=== PATIENT | female | born 1980 | race Caucasian/White ===

== ENCOUNTER 2020-08-31 15:42 | Inpatient (IN) | payer SELFPAY, OTHER ==
[~2020-08-31] VITALS: Ht 165.1 cm; Wt 63.6 kg
[2020-08-31] MEDS ORDERED: LORazepam 2 mg/ml vial IV ONE (16:20)
[2020-08-31] MEDS ORDERED: normal saline 1000ML IV soln IVB ONE (16:45)
[2020-08-31 16:55] LABS: BASOPHILS # (AUTO) 0.1 X10'3 (0-0.2); BASOPHILS % (AUTO) 0.9 % (0-1); EOSINOPHILS # (AUTO) 0.1 X10'3 (0-0.9); EOSINOPHILS % (AUTO) 0.5 % (0-6); HEMATOCRIT 33.4 % (35.0-45.0); HEMOGLOBIN 11.4 g/dl (12.0-16.0); LYMPHOCYTES % (AUTO) 20.6 % (21-51); MEAN CORPUSCULAR HEMOGLOBIN 31.8 PG (27.0-31.0); MEAN CORPUSCULAR HGB CONC 34.1 g/dL (33.0-36.5); MEAN CORPUSCULAR VOLUME 93.1 FL (78-98); MEAN PLATELET VOLUME 6.9 FL (7.4-10.4); MONOCYTES # (AUTO) 0.9 X10'3 (0-0.9); MONOCYTES % (AUTO) 9.5 % (2-12); NEUTROPHILS # (AUTO) 6.8 X10'3 (1.8-7.7); NEUTROPHILS % (AUTO) 68.5 % (42-75); PLATELET COUNT 308 X10'3 (140-440); RED BLOOD COUNT 3.59 X10'6 (4.20-5.60); RED CELL DISTRIBUTION WIDTH 15.2 % (11.5-14.5); WHITE BLOOD COUNT 9.9 X10'3 (4.5-11.0)
[2020-08-31] MEDS ORDERED: MIDAZolam 5mg/ml 2ml vial IV ONE ×2 (17:00→18:00)
[2020-08-31 17:02] LABS: CLARITY,URINE CLOUDY (Clear); COLOR,URINE YELLOW (Yellow); GLUCOSE, URINE NEGATIVE (Neg); KETONES,URINE NEGATIVE (Neg); LEUKOCYTE ESTERASE ,URINE NEGATIVE (Neg); NITRITES, URINE NEGATIVE (Neg); OCCULT BLOOD,URINE LARGE (Neg); PROTEIN,URINE NEGATIVE (Neg)
[2020-08-31 17:03] LABS: UA COLLECTION TYPE STRAIGHT CATH
[2020-08-31 17:13] LABS: BACTERIA,URINE NONE SEEN /HPF (Neg); MUCUS STRANDS FEW /LPF (Neg); RBC,URINE 20-50 /HPF (0-2); SQUAMOUS EPITHELIAL CELL,UR MODERATE /LPF (FEW); TRANSITIONAL EPI CELLS,URINE MODERATE /HPF; WBC,URINE 0-4 /HPF (0-4)
[2020-08-31 17:14] LABS: AMORPHOUS PHOSPHATES 4+; HYALINE CASTS 0-3 /LPF (NEGATIVE)
[2020-08-31 17:18] LABS: URINE AMPHETAMINE SCREEN POSITIVE (Neg); URINE BARBITUATE SCREEN NEGATIVE (Neg); URINE BENZODIAZEPINES SCREEN NEGATIVE (Neg); URINE CANNABINOID SCREEN POSITIVE (Neg); URINE COCAINE SCREEN NEGATIVE (Neg); URINE METHADONE SCREEN NEGATIVE (Neg); URINE OPIATE SCREEN NEGATIVE (Neg); URINE PHENCYCLIDINE SCREEN NEGATIVE (Neg)
[2020-08-31 17:41] LABS: ALANINE AMINOTRANSFERASE 26 U/L (12-78); ALBUMIN 3.9 G/DL (3.4-5.0); ALBUMIN/GLOBULIN RATIO 1.1 (1.1-1.5); ALKALINE PHOSPHATASE 96 IU/L (46-116); ANION GAP 9 (8-16); ASPARTATE AMINO TRANSFERASE 50 U/L (10-37); BLOOD UREA NITROGEN 20 MG/DL (7-18); BUN/CREATININE RATIO 18.9 (6.6-38.0); CALCIUM 10.6 MG/DL (8.5-10.1); CHLORIDE 108 MMOL/L (99-107); CREATININE 1.06 MG/DL (0.40-0.90); GLUCOSE 84 MG/DL (70-104); POTASSIUM 4.2 MMOL/L (3.5-5.1); SODIUM 140 MMOL/L (135-145); TOTAL CARBON DIOXIDE 23.2 MMOL/L (24-32); TOTAL PROTEIN 7.6 G/DL (6.4-8.2); eGFR 58 ML/MIN
[2020-08-31 17:43] LABS: TROPONIN I < 0.04 NG/ML (0.0-0.05)
[2020-08-31 17:47] LABS: ETHANOL < 0.010 GM/DL (0.0-0.010)
[2020-08-31] MEDS ORDERED: ceFAZolin 1000mg inj ONE (18:42)
[2020-08-31] MEDS ORDERED: clindamycin phosphate 150mg/ml inj. ONE (18:42)
[2020-08-31] MEDS ORDERED: gentamicin 40 MG/1 ML inj ONE (18:42)
[2020-08-31] MEDS ORDERED: heparin 10,000 units/1 ML INJ ONE (18:42)
[2020-08-31] MEDS ORDERED: piperacillin/tazo 3.375gm/50ml 50 ML IV ONE (18:55)
[2020-08-31] MEDS ORDERED: haloperidol lactate 5mg/ml inj IM ONE (18:55)
[2020-08-31] MEDS ORDERED: acetaminophen 650mg rectal suppository RC ONE (18:55)
[2020-08-31] MEDS ORDERED: diphenhydrAMINE 50 mg/ml inj IV ONE (18:55)
[2020-08-31] MEDS ORDERED: VANCOmycin 1250MG/NS 250ml Bag 250 ML IV ONE (19:00)
[2020-08-31 19:20] LABS: URINE HCG NEGATIVE (NEG)
--- NOTE | 2020-08-31 19:30 | NUR ---
restraints removed after benydryl and haldol im , patient will be going to cat scan rr even un labored observable decrease in agitation md aware
--- NOTE | 2020-08-31 20:30 | NUR ---
patient in bed right side hob 30 degrees covers on eyes closed rr even un labored no observable s/s of acute stress at this time
[2020-08-31 20:51] LABS: ALBUMIN 3.4 G/DL (3.4-5.0); ANION GAP 11 (8-16); BLOOD UREA NITROGEN 20 MG/DL (7-18); BUN/CREATININE RATIO 20.8 (6.6-38.0); CALCIUM 9.7 MG/DL (8.5-10.1); CHLORIDE 110 MMOL/L (99-107); CREATINE KINASE 737 U/L (26-192); CREATININE 0.96 MG/DL (0.40-0.90); GLUCOSE 80 MG/DL (70-104); POTASSIUM 3.7 MMOL/L (3.5-5.1); SODIUM 142 MMOL/L (135-145); TOTAL CARBON DIOXIDE 21.4 MMOL/L (24-32); eGFR 65 ML/MIN
--- NOTE | 2020-08-31 21:59 | NUR ---
dr. sandhu assesssing patient at bedside rr even un labored patient hard to arouse hob 30 degrees rr even un labored no observable s/s of acute will continue to monitor
[2020-08-31] MEDS ORDERED: magnesium hydroxide 30ml (MOM) UD suspension PO PRN (22:10)
[2020-08-31] MEDS ORDERED: acetaminophen 325mg tablet PO PRN (22:10)
[2020-08-31] MEDS ORDERED: ondansetron/PF 4mg/2ml inj IV PRN (22:10)
[2020-08-31] MEDS ORDERED: mag hydrox/Alum hydrox/simeth 30ml oral suspension PO PRN (22:10)
[2020-08-31] MEDS: normal saline 1000ml 1,000 ML IV SCH (22:28)
--- NOTE | 2020-08-31 23:59 | NUR ---
PATIENT IN BED EYES CLOSED RR EVEN UN LABORED NO OBSERVABLE S/S OF DELRIUM WILL CONTINUE TO MONITOR
--- NOTE | 2020-09-01 01:00 | NUR ---
patient in bed eyes closed rr even un labored bno observable s/s of delirium will continue to monitor
--- NOTE | 2020-09-01 02:26 | NUR ---
PATIENT SUPINE IN BED HOB 30 DEGREES RR EVEN UN LABORED NO OBSERVABLE S/S OF ACUTE DELIRIUM AT THIS TIME WILL CONTINUE TO MONITOR
[2020-09-01] MEDS: normal saline 1000ml 1,000 ML IV SCH ×4 (03:58→23:33)
--- NOTE | 2020-09-01 03:58 | NUR ---
PATIENT IN BED LYING ON RIGHT SIDE COVERS ON EYES CLOSED RR EVEN UN LABORED NO OBSERVABLE S/S OF ACUTE DILIRIUM AT THIS TIME WILL CONTINUE TO MONITOR
[2020-09-01 05:29] LABS: ALANINE AMINOTRANSFERASE 23 U/L (12-78); ALBUMIN 3.1 G/DL (3.4-5.0); ALBUMIN/GLOBULIN RATIO 0.9 (1.1-1.5); ALKALINE PHOSPHATASE 75 IU/L (46-116); ANION GAP 8 (8-16); ASPARTATE AMINO TRANSFERASE 46 U/L (10-37); BILIRUBIN,TOTAL 1.5 MG/DL (0.1-1.0); BLOOD UREA NITROGEN 19 MG/DL (7-18); BUN/CREATININE RATIO 21.1 (6.6-38.0); CHLORIDE 114 MMOL/L (99-107); GLUCOSE 72 MG/DL (70-104); POTASSIUM 4.1 MMOL/L (3.5-5.1); SODIUM 144 MMOL/L (135-145); TOTAL CARBON DIOXIDE 22.1 MMOL/L (24-32); TOTAL PROTEIN 6.5 G/DL (6.4-8.2); eGFR 70 ML/MIN
[2020-09-01 05:31] LABS: CREATINE KINASE 503 U/L (26-192)
[2020-09-01 05:32] LABS: BASOPHILS # (AUTO) 0.1 X10'3 (0-0.2); BASOPHILS % (AUTO) 1.4 % (0-1); EOSINOPHILS # (AUTO) 0.2 X10'3 (0-0.9); EOSINOPHILS % (AUTO) 3.3 % (0-6); HEMATOCRIT 32.5 % (35.0-45.0); HEMOGLOBIN 10.9 g/dl (12.0-16.0); LYMPHOCYTES # (AUTO) 2.1 X10'3 (1.1-4.8); LYMPHOCYTES % (AUTO) 41.1 % (21-51); MEAN CORPUSCULAR HGB CONC 33.6 g/dL (33.0-36.5); MEAN CORPUSCULAR VOLUME 95.1 FL (78-98); MONOCYTES # (AUTO) 0.5 X10'3 (0-0.9); MONOCYTES % (AUTO) 9.6 % (2-12); NEUTROPHILS # (AUTO) 2.3 X10'3 (1.8-7.7); NEUTROPHILS % (AUTO) 44.6 % (42-75); PLATELET COUNT 231 X10'3 (140-440); RED BLOOD COUNT 3.42 X10'6 (4.20-5.60); RED CELL DISTRIBUTION WIDTH 15.3 % (11.5-14.5); WHITE BLOOD COUNT 5.1 X10'3 (4.5-11.0)
--- NOTE | 2020-09-01 05:42 | NUR ---
PATIENT LYING ON LEFT SIDE COVERS ON HOB 30 DEGREES, EYES CLOSED RR EVEN UN LABORED NO OBSERVABLE S/S OF ACUTE STRESS/DELIRIUM AT THIS TIME WILL CONTINUE TO MONITOR PATIENT AFTER DRAWING A.M. LABS STARTED A CONVERSATION AND IS CURRENTLY EASY TO AROUSE AND AOX4 ASSESSED AFTER CONVERSATION
[2020-09-01] MEDS ORDERED: NO HOME MEDS (06:09)
[2020-09-01] MEDS: heparin, porcine 5000 units/ml vial SQ SCH ×2 (08:00→20:00)
[2020-09-01 10:00] VITALS: BP 90/45
[2020-09-01] MEDS: CefTRIAXone/D5W-Rocephin 1gm 50 ML IV SCH (11:31)
[2020-09-01] MEDS: vancomycin/NS 1 GM ADD-VANTAGE 250 ML IV SCH ×2 (13:59→22:12)
[2020-09-01 18:37] VITALS: BP 94/60
[2020-09-01] MEDS: lactobacillus rhamnosus 10,000 MMU CELLS/CAPSULE PO SCH (19:45)
--- NOTE | 2020-09-01 21:22 | NUR ---
PATIENT STATES [employer] PAIN AND TINGLING IN BOTH FEET. Addendum: 09/01/20 at 2146 by Dianna RANDHAWA Amended: Links added.
[2020-09-01 22:33] VITALS: BP 82/48
--- NOTE | 2020-09-01 22:40 | NUR ---
PATIENT STATES CONTINUOUS TNGLING AND PAIN SENSATION IN FEET. Addendum: 09/01/20 at 2242 by Dianna RANDHAWA Amended: Links added.
--- NOTE | 2020-09-01 22:46 | NUR ---
reviewed and agree with SRN assessment.
[2020-09-02 06:00] VITALS: BP 92/43
--- NOTE | 2020-09-02 06:23 | NUR ---
Problems reprioritized. Patient report given, questions answered & plan of care reviewed with MELI HUITRON.
[2020-09-02 06:28] LABS: BASOPHILS # (AUTO) 0.1 X10'3 (0-0.2); BASOPHILS % (AUTO) 1.2 % (0-1); EOSINOPHILS # (AUTO) 0.2 X10'3 (0-0.9); EOSINOPHILS % (AUTO) 3.2 % (0-6); HEMATOCRIT 28.6 % (35.0-45.0); HEMOGLOBIN 9.7 g/dl (12.0-16.0); LYMPHOCYTES # (AUTO) 1.8 X10'3 (1.1-4.8); LYMPHOCYTES % (AUTO) 38.2 % (21-51); MEAN CORPUSCULAR HEMOGLOBIN 32.2 PG (27.0-31.0); MEAN CORPUSCULAR VOLUME 94.9 FL (78-98); MEAN PLATELET VOLUME 7.1 FL (7.4-10.4); MONOCYTES # (AUTO) 0.4 X10'3 (0-0.9); MONOCYTES % (AUTO) 8.3 % (2-12); NEUTROPHILS # (AUTO) 2.3 X10'3 (1.8-7.7); NEUTROPHILS % (AUTO) 49.1 % (42-75); PLATELET COUNT 205 X10'3 (140-440); RED BLOOD COUNT 3.02 X10'6 (4.20-5.60); WHITE BLOOD COUNT 4.7 X10'3 (4.5-11.0)
--- NOTE | 2020-09-02 06:29 | NUR ---
Patient in room ORTHO 4007. I have received report from Christen and had the opportunity to ask questions and assume patient care.
[2020-09-02 06:32] LABS: ALANINE AMINOTRANSFERASE 20 U/L (12-78); ALBUMIN 2.7 G/DL (3.4-5.0); ALBUMIN/GLOBULIN RATIO 0.9 (1.1-1.5); ALKALINE PHOSPHATASE 81 IU/L (46-116); ANION GAP 11 (8-16); ASPARTATE AMINO TRANSFERASE 34 U/L (10-37); BILIRUBIN,TOTAL 0.6 MG/DL (0.1-1.0); BLOOD UREA NITROGEN 17 MG/DL (7-18); BUN/CREATININE RATIO 19.8 (6.6-38.0); CALCIUM 8.5 MG/DL (8.5-10.1); CHLORIDE 110 MMOL/L (99-107); CREATININE 0.86 MG/DL (0.40-0.90); GLUCOSE 90 MG/DL (70-104); POTASSIUM 3.7 MMOL/L (3.5-5.1); SODIUM 141 MMOL/L (135-145); TOTAL CARBON DIOXIDE 19.9 MMOL/L (24-32); TOTAL PROTEIN 5.7 G/DL (6.4-8.2); eGFR 74 ML/MIN
[2020-09-02] MEDS: lactobacillus rhamnosus 10,000 MMU CELLS/CAPSULE PO SCH ×2 (07:31→19:29)
[2020-09-02] MEDS: heparin, porcine 5000 units/ml vial SQ SCH ×2 (07:32→19:31)
[2020-09-02] MEDS: CefTRIAXone/D5W-Rocephin 1gm 50 ML IV SCH (07:32)
[2020-09-02] MEDS: normal saline 1000ml 1,000 ML IV SCH ×3 (09:33→22:12)
[2020-09-02 10:00] VITALS: BP 102/59
[2020-09-02] MEDS ORDERED: LORazepam 1 MG tablet PO PRN (10:25)
[2020-09-02] MEDS: vancomycin/NS 1 GM ADD-VANTAGE 250 ML IV SCH (10:35)
[2020-09-02 18:06] VITALS: BP 97/59
--- NOTE | 2020-09-02 18:21 | NUR ---
Patient in room ORTHO 4007. I have received report from Caesar HUITRON and had the opportunity to ask questions and assume patient care.
--- NOTE | 2020-09-02 18:26 | NUR ---
Problems reprioritized. Patient report given, questions answered & plan of care reviewed with Amberly.
[2020-09-02] MEDS: gabapentin 100mg capsule PO PRN (19:30)
[2020-09-02] MEDS ORDERED: VANCOMYCIN LEVEL IV ONE (21:30)
[2020-09-02 22:04] VITALS: BP 91/56
[2020-09-03 06:04] LABS: BASOPHILS % (AUTO) 0.7 % (0-1); EOSINOPHILS # (AUTO) 0.1 X10'3 (0-0.9); HEMATOCRIT 27.7 % (35.0-45.0); HEMOGLOBIN 9.5 g/dl (12.0-16.0); LYMPHOCYTES # (AUTO) 1.7 X10'3 (1.1-4.8); LYMPHOCYTES % (AUTO) 36.6 % (21-51); MEAN CORPUSCULAR HEMOGLOBIN 32.5 PG (27.0-31.0); MEAN CORPUSCULAR HGB CONC 34.3 g/dL (33.0-36.5); MEAN CORPUSCULAR VOLUME 94.7 FL (78-98); MEAN PLATELET VOLUME 7.1 FL (7.4-10.4); MONOCYTES # (AUTO) 0.3 X10'3 (0-0.9); MONOCYTES % (AUTO) 6.3 % (2-12); NEUTROPHILS # (AUTO) 2.5 X10'3 (1.8-7.7); NEUTROPHILS % (AUTO) 53.4 % (42-75); PLATELET COUNT 185 X10'3 (140-440); RED BLOOD COUNT 2.93 X10'6 (4.20-5.60); RED CELL DISTRIBUTION WIDTH 14.9 % (11.5-14.5); WHITE BLOOD COUNT 4.7 X10'3 (4.5-11.0)
--- NOTE | 2020-09-03 06:23 | NUR ---
Problems reprioritized. Patient report given, questions answered & plan of care reviewed with Caesar HUITRON.
[2020-09-03 06:32] LABS: ALANINE AMINOTRANSFERASE 21 U/L (12-78); ALBUMIN 2.5 G/DL (3.4-5.0); ALBUMIN/GLOBULIN RATIO 0.8 (1.1-1.5); ALKALINE PHOSPHATASE 88 IU/L (46-116); ANION GAP 9 (8-16); ASPARTATE AMINO TRANSFERASE 30 U/L (10-37); BILIRUBIN,TOTAL 0.3 MG/DL (0.1-1.0); BLOOD UREA NITROGEN 17 MG/DL (7-18); BUN/CREATININE RATIO 20.2 (6.6-38.0); CALCIUM 8.5 MG/DL (8.5-10.1); CHLORIDE 110 MMOL/L (99-107); CREATININE 0.84 MG/DL (0.40-0.90); GLUCOSE 93 MG/DL (70-104); POTASSIUM 3.6 MMOL/L (3.5-5.1); SODIUM 141 MMOL/L (135-145); TOTAL CARBON DIOXIDE 22.2 MMOL/L (24-32); TOTAL PROTEIN 5.5 G/DL (6.4-8.2); eGFR 76 ML/MIN
--- NOTE | 2020-09-03 06:37 | NUR ---
Patient in room ORTHO 4007. I have received report from [facility] and had the opportunity to ask questions and assume patient care.
[2020-09-03 06:47] VITALS: BP 91/57
[2020-09-03] MEDS: lactobacillus rhamnosus 10,000 MMU CELLS/CAPSULE PO SCH (07:55)
[2020-09-03] MEDS: CefTRIAXone/D5W-Rocephin 1gm 50 ML IV SCH (07:55)
[2020-09-03] MEDS: normal saline 1000ml 1,000 ML IV SCH (07:56)
[2020-09-03] MEDS: heparin, porcine 5000 units/ml vial SQ SCH (07:56)
[2020-09-03] MEDS: gabapentin 100mg capsule PO PRN (07:57)
[2020-09-03 09:18] VITALS: BP 97/61
--- NOTE | 2020-09-03 13:36 | NUR ---
Safe DC. All personal items with patient.
== END 2020-09-03 13:27 | disposition home or self-care (01) | DRG 558 ==
LOC: ER 15:43 → ED HOLD 22:07 → ORTHO 4S 09-01 07:00
PROVIDERS: ADMIT Internal Medicine; ATTEND Family Medicine
DX: M62.82 Rhabdomyolysis (principal); F15.10 Other stimulant abuse, uncomplicated; Z20.828 Contact with and (suspected) exposure to other viral communicable diseases; Z71.51 Drug abuse counseling and surveillance of drug abuser
CPT/HCPCS: 36415; 70450; 71045; 80048; 80053; 80305; 80320; 81001; 81025; 82140; 82550; 83605; 84484; 85025; 87040; 87081; 87635; 93005; 93306; 93308; 99285; G0378; J0690; J0696; J1200; J1580; J1630; J1644; J2060; J2250; J2543; J3370; J3490; J7030